=== PATIENT | female | born 1965 | race Caucasian/White ===

== ENCOUNTER 2024-07-17 09:12 | Emergency (ER) | payer BC, OTHER ==
[~2024-07-17] VITALS: Ht 167.6 cm; Wt 91.0 kg
[~2024-07-17 09:12] MED LIST: NO MEDICATIONS REPORTED
[2024-07-17 09:14] VITALS: O2SAT 98
[2024-07-17] MEDS: AMOXICILLIN/POTASSIUM CLAVULANATE 875/125MG TAB PO ONE (10:07)
[2024-07-17] MEDS: ACETAMINOPHEN 325MG TABLET PO ONE (10:08)
[2024-07-17] MEDS: TETANUS, DIPHTHERIA, PERTUSSIS VAC/PF 0.5ML (>10YR OLD) IM ONE (10:09)
[2024-07-17] MEDS ORDERED: AMOX1TAB16 MT (10:43)
[2024-07-17 10:54] VITALS: BP 138/87; PULSE 87; RESP 18; TEMP 36.9; O2SAT 98
== END 2024-07-17 10:54 | disposition home or self-care (01) ==
LOC: ER 09:12
DX: S70.311A Abrasion, right thigh, initial encounter (principal); W54.0XXA Bitten by dog, initial encounter; Y93.89 Activity, other specified; Y92.89 Other specified places as the place of occurrence of the external cause; Y99.8 Other external cause status
CPT/HCPCS: 73590; 90715; 90471; 99283; Z7610 ×2